=== PATIENT | female | born 1980 | race Caucasian/White ===

== ENCOUNTER 2016-10-27 13:28 | Emergency (ER) | payer OTHER ==
[2016-10-27] MEDS ORDERED: DEXAMETHASONE 10 MG/ML VIAL PO STA (14:32)
[2016-10-27] MEDS ORDERED: ALBUTEROL NEB 2.5 MG/3 ML INH STA (14:32)
[2016-10-27] MEDS ORDERED: ALBUTEROL NEB 2.5 MG/3 ML INH ONE (14:37)
[2016-10-27] MEDS ORDERED: DEXAMETHASONE 10 MG/ML VIAL ONE (14:39)
[2016-10-27] MEDS ORDERED: CHERRY SYRUP 10 ML UDC PO ONE (14:39)
== END 2016-10-27 16:02 | disposition home or self-care (01) ==
DX: J06.9 Acute upper respiratory infection, unspecified (principal); B97.89 Other viral agents as the cause of diseases classified elsewhere; R06.2 Wheezing; F17.200 Nicotine dependence, unspecified, uncomplicated
CPT/HCPCS: 71020; 87275; 87276; 94640; 94664; 99283; 99284; A9270; J7613